=== PATIENT | female | born 1960 | race Caucasian/White ===

== ENCOUNTER 2025-01-08 10:59 | Emergency (ER) | payer OTHER, SELFPAY ==
[2025-01-08] VITALS (28 sets, daily range): BP systolic 132–173; BP diastolic 70–85; PULSE 67–88; RESP 9–21; TEMP 36.3; O2SAT 93–97
--- NOTE | 2025-01-08 10:45 | RT.EKG_ITS ---
APPROVED REPORT Exam: Resting ECG Reason for Exam: Chest pain Patient Location: E HR:77 bpm ECG Measurements Heart Rate 77 AXIS HI 152 P 43 QRSd 96 QRS 101 QT 376 T 45 QTc 427 Conclusion Sinus rhythm...normal P axis, V-rate 60- 99 Atrial premature complex...SV complex w/ short R-R interval Right axis deviation...QRS axis ( 78,627) I have reviewed and interpreted ECG and agree with software generated interpretation.
--- NOTE | 2025-01-08 11:15 | DI.RAD_ITS ---
Exam(s) XR PORTABLE CHEST AP EXAM: XR PORTABLE CHEST AP CLINICAL HISTORY: central chest pain. TECHNIQUE: 2D digital imaging was performed. COMPARISON: No exams were available for comparison FINDINGS: Single AP portable view. Heart size is upper normal. The mediastinum is not widened. Lungs are clear. No infiltrates nor obvious pleural effusions. IMPRESSION: No acute pulmonary findings on this single AP portable view of the chest. DATA REPOSITORY: RADIATION DOSE DELIVERED:
[2025-01-08 11:30] LABS: Abs Immature Grans 0.02 10^3/uL (0.0-0.06); Absolute Basophil Count 0.02 10^3/uL (0.0-0.2); Absolute Eosinophil Count 0.24 10^3/uL (0.0-0.7); Absolute Lymphocyte Count 1.64 10^3/uL (1.2-3.4); Absolute Monocyte Count 0.33 10^3/uL (0.1-0.8); Absolute Neutrophil Count 4.44 10^3/uL (1.2-6.7); Basophils % 0.3 %; Eosinophils % 3.6 %; HCT 40.1 % (36.0-46.0); HGB 13.6 g/dL (11.2-15.7); Immature Grans % 0.3 %; Lymphocytes % 24.5 %; MCHC 33.9 % (32.0-36.0); MCV 97 fL (80-95); Monocytes % 4.9 %; Neutrophils % 66.4 %; Platelet Count 232 10^3/uL (130-400); RBC 4.12 10^6/uL (3.93-5.22); RDW 11.9 % (11.7-14.6); RDW-SD 42.5 fL; WBC 6.69 10^3/uL (4.4-10.8)
[2025-01-08 11:49] LABS: PTT Activated 25.9 sec (20.6-30.2); Prothrombin Time 9.6 sec (9.1-11.1)
[2025-01-08 11:50] LABS: ALT 33 U/L (14-59); AST 26 U/L (15-37); Albumin 3.8 g/dL (3.4-5.0); Alkaline Phosphatase 88 U/L (46-116); Anion Gap 8.7 mmol/L (3-11); BUN 19 mg/dL (7-18); Bilirubin, Total 0.8 mg/dL (0.2-1.0); CO2 29.3 mmol/L (21.0-32.0); CREATININE 0.9 mg/dL (0.55-1.02); Chloride 105 mmol/L (98-107); Estimated GFR 70.95 (mL/min/1.73m2); Glucose 98 mg/dL (74-106); Lipase 42 U/L (<78); NT-proBNP 55 pg/mL (<300); Potassium 4.2 mmol/L (3.5-5.1); Sodium 143 mmol/L (136-145); Total Protein 7.1 g/dL (6.4-8.2); Troponin I 5 ng/L (<or=51)
[2025-01-08 12:00] LABS: D-Dimer 341 ng/mlFEU (<500)
--- NOTE | 2025-01-08 12:06 | W.ED.GENAD ---
Discharge Plan Disposition Patient Disposition: Home Condition: Good Discharge Details Chief Complaint: Chest Pain Clinical Impression: Chest discomfort Primary Care Provider: Margie,Local ED Provider: Axel Knight Home Meds and New Rx's Prescriptions: No Action multivitamin [Daily Multi-Vitamin] Tablet 1 tab PO DAILY mecobalamin (vitamin B12) 500 mcg tablet,chewable 500 mcg PO DAILY Discharge Instructions Instructions: Chest Pain (DC) Additional Instructions: At this time your workup is returned quite reassuring. Your EKG shows no signs of heart attack or significant abnormality. There is no evidence of blood clot, popped lung, tumor mass or other abnormality. Your ultrasound of your heart shows no evidence of significant congestive heart failure or major wall motion abnormalities. Please take it easy and rest for the next 12 to 24 hours. Drink plenty of fluids and stay well-hydrated. Take Tums or Maalox as needed for any heartburn. If you notice any worsening of your symptoms, or any new symptoms such as vomiting, diarrhea, fever, chills, shortness of breath, chest pain, numbness, weakness, or fainting , please return immediately to the emergency department for reevaluation. Please follow up with your primary care provider as soon as possible for reassessment and reevaluation. As always, it was a pleasure participating in your medical care today. HPI General Date/Time Provider Initiated Documentation: 01/08/25 11:07. HPI Narrative: 64-year-old female with no significant past medical history, no family history of heart disease, no very distant history of tobacco use presents today for evaluation of left-sided chest pain. Patient states that it occurred when she woke up at 7:45 AM. It was dull and pinching in nature in the left chest. There was also a pressure-like sensation over her chest. This is continued. At around 9 AM she developed mild tingling in the left arm and slight tightness. She denies any difficulty breathing but she does admit to getting over a cough recently. She denies any fever or chills. No tearing or ripping sensation. Denies PE risk factors such as recent long car rides, immobilization, recent surgery, prior history of DVT or PE, family history of PE or DVT, morbid obesity, exogenous estrogen and smoking, hemoptysis, history of cancer. Related Data Home Medications ?Medication ?Instructions ?Recorded ?Confirmed mecobalamin (vitamin B12) 500 mcg 500 mcg PO DAILY 01/08/25 01/08/25 chewable tablet multivitamin (Daily Multi-Vitamin 1 tab PO DAILY 01/08/25 01/08/25 tablet) Allergies Allergy/AdvReac Type Severity Reaction Status Date / Time No Known Allergies Allergy Unverified 01/08/25 11:05 General Stated Complaint: Chest Pain RODDY: 2 Exam Narrative Exam Narrative: 1.Const: Well-nourished, Well-developed, appearing stated age 2.Eyes: PERRL, no conjunctival injection, and symmetrical lids. 3.ENT: Atraumatic external nose and ears. Moist MM. Neck: Symmetric, trachea midline, No thyromegaly. 4.CVS: +S1/S2, Peripheral pulses 2+ and equal in all extremities. Brisk capillary refill in all extremities. 5.RESP: Unlabored respiratory effort. Clear to auscultation bilaterally. No wheezes rales or rhonchi. Minimal reproducible chest pain on palpation of the left chest. 6.GI: Soft, Nontender/Nondistended, No hepatosplenomegaly. No guarding or rebound. 7.MSK: Normocephalic/Atraumatic, Extremities w/o deformity or ttp No cyanosis or clubbing, Normal movement of all extremities 8.Skin: Warm, Dry. No rashes or lesions. 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 Sensation grossly intact, no focal neurologic deficits. 10.Psych: (AAO) x3. Appropriate mood and affect Course Vital Signs Vital signs: Vital Signs Temperature 36.3 C L 01/08/25 11:01 Pulse 77 01/08/25 11:01 Respiratory Rate 20 01/08/25 11:01 Blood Pressure 173/78 H 01/08/25 11:01 Pulse Oximetry 94 01/08/25 11:01 Temperature 36.3 C L 01/08/25 11:01 Temperature Source Oral 01/08/25 11:01 Pulse 72 01/08/25 11:31 Pulse 73 01/08/25 11:31 Respiratory Rate 13 01/08/25 11:31 Respiratory Effort Normal 01/08/25 11:15 Respiratory Depth Normal 01/08/25 11:15 Respiratory Pattern Normal 01/08/25 11:15 Blood Pressure 153/84 H 01/08/25 11:31 Blood Pressure Mean 103 01/08/25 11:31 Blood Pressure Position Sitting 01/08/25 11:01 Pulse Oximetry 94 01/08/25 11:31 Oxygen Delivery Method Cpap 01/08/25 11:01 Pain Level 5 01/08/25 11:01 Lab/Test Results Lab/Test Results: Laboratory Tests Range/Units 01/08/25 11:10 WBC (4.4-10.8) 10^3/uL 6.69 RBC (3.93-5.22) 10^6/uL 4.12 Hgb (11.2-15.7) g/dL 13.6 Hct (36.0-46.0) % 40.1 MCV (80-95) fL 97 H MCH (27.0-33.0) pg 33.0 MCHC (32.0-36.0) % 33.9 RDW (11.7-14.6) % 11.9 Plt Count (130-400) 10^3/uL 232 MPV (8.0-11.0) fL 10.0 Immature Gran % % 0.3 Neutrophils % % 66.4 Lymphocytes % % 24.5 Monocytes % % 4.9 Eosinophils % % 3.6 Basophils % % 0.3 Nucleated RBC % (0.0-0.3) % 0.0 Absolute Neutrophils (1.2-6.7) 10^3/uL 4.44 Absolute Lymphocytes (1.2-3.4) 10^3/uL 1.64 Absolute Monocytes (0.1-0.8) 10^3/uL 0.33 Absolute Eosinophils (0.0-0.7) 10^3/uL 0.24 Absolute Basophils (0.0-0.2) 10^3/uL 0.02 PT (9.1-11.1) sec 9.6 INR (0.9-1.1) 1.0 APTT (20.6-30.2) sec 25.9 D-Dimer (<500) ng/mlFEU 341 Sodium (136-145) mmol/L 143 Potassium (3.5-5.1) mmol/L 4.2 Chloride (98-107) mmol/L 105 Carbon Dioxide (21.0-32.0) mmol/L 29.3 Anion Gap (3-11) mmol/L 8.7 BUN (7-18) mg/dL 19 H Creatinine (0.55-1.02) mg/dL 0.9 Est GFR (CKD-EPI 2020) (mL/min/1.73m2) 70.95 Glucose (74-106) mg/dL 98 Calcium (8.5-10.1) mg/dL 9.0 Total Bilirubin (0.2-1.0) mg/dL 0.8 AST (15-37) U/L 26 ALT (14-59) U/L 33 Alkaline Phosphatase (46-116) U/L 88 Troponin I (<or=51) ng/L 5 NT-Pro-B Natriuret Pep (<300) pg/mL 55 Total Protein (6.4-8.2) g/dL 7.1 Albumin (3.4-5.0) g/dL 3.8 Lipase (<78) U/L 42 Medical Decision Making 64-year-old female with no significant past medical history, no family history of heart disease, no very distant history of tobacco use presents today for evaluation of left-sided chest pain. Patient states that it occurred when she woke up at 7:45 AM. It was dull and pinching in nature in the left chest. There was also a pressure-like sensation over her chest. This is continued. At around 9 AM she developed mild tingling in the left arm and slight tightness. She denies any difficulty breathing but she does admit to getting over a cough recently. She denies any fever or chills. No tearing or ripping sensation. Denies PE risk factors such as recent long car rides, immobilization, recent surgery, prior history of DVT or PE, family history of PE or DVT, morbid obesity, exogenous estrogen and smoking, hemoptysis, history of cancer. Exam demonstrates well-appearing female, no rash, shingles, or other abnormality. No pleuritic chest pain to suggest significant PE. No tearing or ripping sensation to suggest dissection. No fever or chills to suggest active pneumonia. Differential includes muscle spasm, less likely ACS, EKG appears benign. Viral pleuritic component is on the differential. Reflux or esophageal spasm is of concern. We will evaluate for concerning etiologies, monitor closely and reassess. 1:34 PM Chest x-ray has returned negative for any acute process. Bedside limited ultrasound shows no evidence of right heart strain, wall motion abnormality or pericardial effusion. Serial troponins are normal, D-dimer negative with no suggestion of PE. proBNP normal suggesting no signs of subtle heart strain. No white count bandemia or left shift. Patient remains hemodynamically stable. EKG benign. At this time there is no clinical evidence to suggest dissection, PE, ACS, pneumothorax or other life-threatening etiology. Recommend Tums and Prilosec at home. Recommend rest and plenty of fluids. Discussed red flags for which to return. Patient's heart score is in the low risk category. Patient stable for discharge. I have extensively reviewed the treatment plan and discharge instructions with the patient and their family. I have addressed all patient concerns at this time. The patient and family was made aware of what symptoms to monitor for that would warrant a return to the emergency department. Discussed the plan with the patient and family, they demonstrate verbal understanding and agreement with our assessment and plan at this time. The documentation in this chart was dictated using [employer] dictation software. Please excuse any dictation errors. FINDINGS: Single AP portable view. Heart size is upper normal. The mediastinum is not widened. Lungs are clear. No infiltrates nor obvious pleural effusions. IMPRESSION: No acute pulmonary findings on this single AP portable view of the chest. Quality:SDOH Health Related Social Needs: No Data to Display PFSH All Active Problems (Updated 01/08/25 @ 13:33 by Axel Knight DO) Chest discomfort (Acute) Social History Smoking/Tobacco Use Status: Never Smoking risk assessment performed?: Yes Alcohol Intake: current Alcohol Intake frequency: a few times a week Drug use: Never Substance use type: does not use Housing: house Do you feel safe at home: Yes Do you feel safe in your relationship?: Yes POCUS Exam (ED) Limited Cardiac Exam DATE OF EXAM: 01/08/25 TIME OF EXAM: 13:36 PROVIDER THAT PERFORMED THE STUDY: Axel Knight IS THIS A REPEAT EXAM DURING THIS ENCOUNTER: no REASON FOR EXAM: Chest pain VISUALIZED STRUCTURES: Left atrium, Left ventricle, Right ventricle and Interventricular septum VIEW OBTAINED: Parasternal long-axis PERTINENT FINDINGS/IMPRESSION: No apparent abnormalities Exam complete
[2025-01-08 12:36] LABS: Troponin I 5 ng/L (<or=51)
== END 2025-01-08 13:41 | disposition home or self-care (01) ==
PROVIDERS: Emergency Provider Student in an Organized Health Care Education/Training Program
DX: R07.9 Chest pain, unspecified (principal); R20.2 Paresthesia of skin
CPT/HCPCS: 80053; 83690; 93005; 93308; 99285; 71045; 83880; 84484; 85025; 85379; 85610; 85730; 93010; 99284